=== PATIENT | female | born 1935 | race Caucasian/White ===

== ENCOUNTER → 2017-08-13 | Outpatient (CLI) | payer OTHER ==
[~2017-08-13] VITALS: Ht 165.1 cm; Wt 72.6 kg
[~2017-08-13] MED LIST: ASPIR 8181 MG PO; BRILINTA90 MG PO; CO Q-10100 M1 PO; COZAAR 50 MG TA50 M2 PO; CRESTOR10 MG PO; E-400 C-500 &1 EACH PO; ESTER-C 500 MG1 EACH PO; FISH OIL 1,001000 M2 PO; FISH OIL PO; HYDROCHLOROTHIA25 M2 PO; LIPITOR 20 MG T20 M1 PO; NITROGLYCERIN0.4 MG SUBLING; OMEPRAZOLE40 MG PO; PLAVIX 75 MG TA75 M1 PO; PREMARIN0.45 MG PO; TOPROL XL25 MG PO; VITAMIN D1000 UNI2 PO
--- NOTE | ~2017-08-13 | P ---
[facility] [address] PROCEDURE REPORT Name: ANTWAN BORJA I Room #: [facility].#: [id number] Admission: 08/13/17 Attend Phys: Hayes Vitale MD Discharge: Date of : 35 Report #: [id number] THIS REPORT FOR: //name// CC: Hayes Moore MD BRIEF HISTORY: The patient is an 81-year-old woman with history of colon polyps for high risk screening colonoscopy. PREOPERATIVE DIAGNOSIS: History of colon polyps. POSTOPERATIVE DIAGNOSES: Diverticulosis coli, left colon and right colon. MEDICATIONS: Deep sedation with propofol per anesthesia. SPECIMEN: None. ESTIMATED BLOOD LOSS: None. PROCEDURE: Colonoscopy to cecum and terminal ileum. FINDINGS: Prior to propofol sedation, procedure of colonoscopy discussed with the patient as well as potential risks and its complications. She indicates she understands and desires to proceed. DESCRIPTION OF PROCEDURE: With the patient in left lateral decubitus position, digital examination was completed which revealed no abnormalities. Subsequently, the [employer] video colonoscope was introduced into the rectum, advanced under direct vision to the cecum. It was done with minimal difficulty. The cecum was identified by the ileocecal valve and the appendiceal orifice. I was able to visualize the distal segment of the terminal ileum which was inspected and noted to be unremarkable. At that point, the scope was slowly withdrawn and careful circumferential views obtained including retroflexing the scope in the ascending colon. Upon slow withdrawal of the scope, the prep was noted to be excellent. The mucosa was within normal limits, normal vascular pattern, normal light reflex. As we withdrew the scope, no neoplastic lesions were seen. She had normal colonic mucosa throughout the entire colon. She was noted to have scattered diverticula in proximal colon but there was no endoscopic evidence of diverticulitis. There were also scattered diverticula in left colon again without endoscopic evidence of diverticulitis. Scope was withdrawn in the rectum. No other abnormalities were seen. Scope was withdrawn in the rectum. Upon retroflexion, no abnormalities were seen. Scope was withdrawn. The patient tolerated the procedure well. CONDITION OF THE PATIENT UPON DISCHARGE: Following procedure, the patient drowsy, aroused, conversant. She will be discharged home when fully ambulatory. [address] [address] PROCEDURE REPORT Name: ANTWAN BORJA I Room #: [facility].#: [id number] Admission: 08/13/17 Attend Phys: Hayes Vitale MD Discharge: Date of : 35 Report #: [id number] INSTRUCTIONS TO THE PATIENT AND FAMILY AT THE TIME OF DISCHARGE: No neoplastic lesions were seen. Typical recommendation would be followed up in 10 years. However, at this point in life, there would not likely be benefit to continued routine screening. However, if she is to develop specific problems, she is return on as needed basis depending on symptomatology. She will return to care of Dr. Adri Moore, return to see me as needed. Last colonoscopy was 6 years ago. Withdrawal time from the cecum was 11 minutes 37 seconds. <ELECTRONICALLY SIGNED> By: Hayes Vitale MD 08/14/17 1108 [id number] Hayes Vitale MD /nt
== END | disposition home or self-care (01) ==
LOC: GI 06:00
DX: Z09 Encounter for follow-up examination after completed treatment for conditions other than malignant neoplasm (principal); Z87.19 Personal history of other diseases of the digestive system; K57.30 Diverticulosis of large intestine without perforation or abscess without bleeding; I10 Essential (primary) hypertension; E78.5 Hyperlipidemia, unspecified; I25.2 Old myocardial infarction; Z95.5 Presence of coronary angioplasty implant and graft; K21.9 Gastro-esophageal reflux disease without esophagitis; Z90.49 Acquired absence of other specified parts of digestive tract; Z90.710 Acquired absence of both cervix and uterus; Z98.890 Other specified postprocedural states; Z98.41 Cataract extraction status, right eye; Z98.42 Cataract extraction status, left eye; Z88.0 Allergy status to penicillin; Z88.1 Allergy status to other antibiotic agents; Z88.8 Allergy status to other drugs, medicaments and biological substances; Z79.82 Long term (current) use of aspirin; Z79.899 Other long term (current) drug therapy

== ENCOUNTER 2018-10-19 13:09 | Inpatient (IN) | payer OTHER ==
[~2018-10-19] VITALS: Ht 165.1 cm; Wt 73.1 kg
--- NOTE | ~2018-10-19 | EKG ---
[address] [email or web address] [address] ELECTROCARDIOGRAM REPORT Name: ANTWAN BORJA I Room #: 205-P ADM IN M.R.#: [id number] Admission: 10/19/18 Attend Phys: Winifred Lucia Discharge: Date of : 35 Report #: [id number] THIS REPORT FOR: //name// [facility] ED Test Date: 2018-10-19 Test Time: 13:15:27 Pat Name: ANTWAN BORJA Department: Room: [facility] Gender: F Drafter Mechanical: BERENICE : 1935 Requested By: Timothy Steinberg Order Number: [id number] MD: Ziggy Byrd Measurements Intervals [place] Rate: 76 P: 39 [place]: 159 QRS: -1 QRSD: 92 T: 2 QT: 387 QTc: 436 Interpretive Statements Sinus rhythm No significant abnormality Compared to ECG 04/27/2016 11:07:40 Anterolateral T-wave abnormality no longer present Electronically Signed On 10-19-2018 17:25:03 [employer]PLANE MECH[employer] APPRENTICE by Ziggy Byrd [email or web address] <ELECTRONICALLY SIGNED> By: Ziggy Byrd MD, [facility] 10/19/18 1725 1315 14 Ziggy Byrd MD, FAC /EPI
[2018-10-19 13:09] VITALS: BP 192/82
[2018-10-19 13:41] LABS: BASOPHILS 0.3 % (0.0-2.0); EOSINOPHILS 1.9 % (0.0-3.0); HEMATOCRIT 41.1 % (37.0-47.0); HEMOGLOBIN 13.9 gm/dL (12.0-15.0); LYMPHOCYTES 37.8 % (24.0-44.0); MCH 32.2 pg (26.0-34.0); MCHC 33.8 g/dL (28.0-37.0); MCV 95.3 fL (80.0-100.0); MONOCYTES 9.3 % (1.0-8.0); PLATELET COUNT 190 thou/uL (150-400); POLYS 50.7 % (36.0-66.0); RBC 4.32 mil/uL (4.20-5.00); RDW 13.6 % (10.5-14.5); WBC 5.9 thou/uL (4.0-11.0)
[2018-10-19 13:48] LABS: ANION GAP 8 mmol/L (7-16); BUN 18 mg/dL (7-18); CALCIUM 9.5 mg/dL (8.5-10.1); CHLORIDE 102 mmol/L (98-107); CO2 28 mmol/L (21-32); CREATININE 0.7 mg/dL (0.6-1.0); GLUCOSE 109 mg/dL (74-106); POTASSIUM 3.6 mmol/L (3.5-5.1); SODIUM 138 mmol/L (136-145)
[2018-10-19 13:57] LABS: ALBUMIN 3.9 g/dL (3.4-5.0); MAGNESIUM 2.2 mg/dL (1.8-2.4); SGOT 26 U/L (15-37); SGPT 27 U/L (30-65); TOTAL BILIRUBIN 0.9 mg/dL (<0.1-1.0); TOTAL PROTEIN 7.3 g/dL (6.4-8.2); TROPONIN-I <0.06 ng/mL (<0.06)
[2018-10-19 16:26] VITALS: BP 150/73
[2018-10-19 17:11] VITALS: BP 136/63
[2018-10-19 18:16] VITALS: BP 145/69
[2018-10-19 19:29] VITALS: BP 128/60
[2018-10-20 00:45] VITALS: BP 134/87
[2018-10-20 04:30] VITALS: BP 119/58
[2018-10-20 08:02] VITALS: BP 140/47
[2018-10-20 10:29] LABS: CHOLESTEROL 112 mg/dL (<200); HDL CHOLESTEROL 45 mg/dL (>40); LDL CHOLESTEROL 50 mg/dL (<100); TC:HDL 2.5 Ratio (Not establshd); TRIGLYCERIDE 88 mg/dL (<150); VLDL 18 mg/dL (<40)
[2018-10-20 12:15] VITALS: BP 134/58
[2018-10-20 14:46] VITALS: BP 140/47
== END 2018-10-20 15:28 | disposition home or self-care (01) | DRG 313 ==
LOC: ER 13:09 → 2N 15:23 → EROBS 15:23 → 2N 17:09 → ENTRNSPT 10-20 15:16 → EDTRNSPTSTS 10-20 15:17 → 2N 10-20 15:28
PROVIDERS: Emergency Medicine; Nurse Practitioner
DX: R07.89 Other chest pain (principal); I25.10 Atherosclerotic heart disease of native coronary artery without angina pectoris; I10 Essential (primary) hypertension; K21.9 Gastro-esophageal reflux disease without esophagitis; K59.00 Constipation, unspecified; E55.9 Vitamin D deficiency, unspecified; E78.5 Hyperlipidemia, unspecified; I25.2 Old myocardial infarction; Z95.5 Presence of coronary angioplasty implant and graft; Z90.49 Acquired absence of other specified parts of digestive tract; Z90.710 Acquired absence of both cervix and uterus; Z87.891 Personal history of nicotine dependence; Z98.42 Cataract extraction status, left eye; Z98.41 Cataract extraction status, right eye; Z79.02 Long term (current) use of antithrombotics/antiplatelets; Z79.82 Long term (current) use of aspirin; Z79.899 Other long term (current) drug therapy; Z88.0 Allergy status to penicillin; Z88.1 Allergy status to other antibiotic agents; Z88.8 Allergy status to other drugs, medicaments and biological substances; Z82.49 Family history of ischemic heart disease and other diseases of the circulatory system; Z28.21 Immunization not carried out because of patient refusal
CPT/HCPCS: 10081

== ENCOUNTER 2019-03-13 15:14 | Emergency (ER) | payer OTHER ==
[~2019-03-13] VITALS: Ht 165.1 cm; Wt 72.6 kg
[2019-03-13] MEDS ORDERED: B12INJ IM (15:34)
[2019-03-13 16:10] LABS: ABSOLUTE NEUTROPHILS 5.7 thou/uL (1.4-8.2); BASOPHILS 0.4 % (0.0-2.0); EOSINOPHILS 1.1 % (0.0-3.0); HEMATOCRIT 41.5 % (37.0-47.0); HEMOGLOBIN 14.3 gm/dL (12.0-15.0); LYMPHOCYTES 26.9 % (24.0-44.0); MCH 33.1 pg (26.0-34.0); MCHC 34.5 g/dL (28.0-37.0); MONOCYTES 6.9 % (1.0-8.0); PLATELET COUNT 241 thou/uL (150-400); POLYS 64.7 % (36.0-66.0); RBC 4.33 mil/uL (4.20-5.00); RDW 13.2 % (10.5-14.5); WBC 8.8 thou/uL (4.0-11.0)
[2019-03-13 16:11] LABS: URINE BILIRUBIN NEGATIVE (Negative); URINE BLOOD NEGATIVE (Negative); URINE CLARITY CLEAR; URINE COLOR YELLOW; URINE GLUCOSE-RANDOM* NEGATIVE (Negative); URINE KETONES NEGATIVE (Negative); URINE LEUKOCYTES-REFLEX NEGATIVE (Negative); URINE NITRITE-REFLEX NEGATIVE (Negative); URINE PROTEIN (DIPSTICK) NEGATIVE (Negative)
[2019-03-13 16:18] LABS: ANION GAP 7 mmol/L (7-16); BUN 20 mg/dL (7-18); CALCIUM 9.1 mg/dL (8.5-10.1); CHLORIDE 102 mmol/L (98-107); CO2 31 mmol/L (21-32); CREATININE 0.9 mg/dL (0.6-1.0); GLUCOSE 141 mg/dL (74-106); POTASSIUM 3.5 mmol/L (3.5-5.1); SODIUM 140 mmol/L (136-145)
[2019-03-13 16:27] LABS: TROPONIN-I <0.06 ng/mL (<0.06)
[2019-03-13 18:42] VITALS: BP 152/64
[2019-03-13 18:56] LABS: FOLIC ACID 18.4 ng/mL (8.6-58.9)
--- NOTE | 2019-03-14 18:00 | EKG ---
[address] [address] ELECTROCARDIOGRAM REPORT Name: ANTWAN BORJA Fernando Room #: DEP [place]#: [id number] ������������������ Admission: 03/13/19 ������������������ Attend Phys: Discharge: 03/13/19 ������������������ Date of : 35 Report #: [id number] ����������������������������������������������������������������� [id number] THIS REPORT FOR: //name// [facility] ED Test Date: 2019-03-13 Test Time: 16:11:39 Pat Name: ANTWAN BORJA Department: Room: Gender: F Ux Researcher: maco : 1935 Requested By: Portillo Harmon Order Number: [id number] MD: Joey Layne Measurements Intervals [place] Rate: 76 P: 36 [place]: 159 QRS: -10 QRSD: 85 T: 20 QT: 401 QTc: 451 Interpretive Statements Sinus rhythm Abnormal R-wave progression, early transition LVH with secondary repolarization abnormality Compared to ECG 10/19/2018 13:15:27 Left ventricular hypertrophy now present Early repolarization now present Electronically Signed On 03-14-2019 17:59:46 CDT by Joey Layne [email or web address] ��������������������������������������������� <ELECTRONICALLY SIGNED> ���������������������������������������� By: Joey Layne MD ��������������������������������������������� 03/14/19 1759 161 161 Joey Layne MD /EPI
[2019-03-15 13:12] LABS: GLYCOHEMOGLOBIN (HGB A1C) 5.6 % (4.8-5.6)
== END 2019-03-13 18:43 | disposition home or self-care (01) ==
LOC: ER 15:14
PROVIDERS: Emergency Medicine
DX: R53.1 Weakness (principal); M79.662 Pain in left lower leg; M79.661 Pain in right lower leg; R61 Generalized hyperhidrosis; I10 Essential (primary) hypertension; E78.5 Hyperlipidemia, unspecified; I25.2 Old myocardial infarction; K21.9 Gastro-esophageal reflux disease without esophagitis; Z90.49 Acquired absence of other specified parts of digestive tract; Z90.710 Acquired absence of both cervix and uterus; Z98.890 Other specified postprocedural states; Z88.0 Allergy status to penicillin; Z88.1 Allergy status to other antibiotic agents; Z88.8 Allergy status to other drugs, medicaments and biological substances

== ENCOUNTER → 2019-12-28 | Outpatient (CLI) | payer OTHER ==
[~2019-12-28] MED LIST changes: +B12INJ IM
== END ==
LOC: SJCVC 12:42
DX: I25.10 Atherosclerotic heart disease of native coronary artery without angina pectoris (principal); I10 Essential (primary) hypertension; E78.5 Hyperlipidemia, unspecified; R25.2 Cramp and spasm; M54.2 Cervicalgia; Z79.82 Long term (current) use of aspirin; Z79.899 Other long term (current) drug therapy

== ENCOUNTER → 2020-07-04 | Outpatient (CLI) | payer OTHER | LOC: SJCVCIMAG 10:56 | PROVIDERS: ATTEND Internal Medicine | DX: I08.3 Combined rheumatic disorders of mitral, aortic and tricuspid valves (principal); I10 Essential (primary) hypertension; I25.10 Atherosclerotic heart disease of native coronary artery without angina pectoris; E78.5 Hyperlipidemia, unspecified; Z79.899 Other long term (current) drug therapy ==